=== PATIENT | female | born 1990 | race African-American/Black ===

== ENCOUNTER 2019-06-06 14:47 | Emergency (ER) | payer MEDICAID ==
[~2019-06-06] VITALS: Ht 165.1 cm; Wt 63.0 kg
[2019-06-06 14:54] VITALS: BP 102/62
== END 2019-06-06 20:20 | disposition left against medical advice (07) ==
LOC: ER 16:23
DX: O26.891 Other specified pregnancy related conditions, first trimester (principal); R53.1 Weakness; R42 Dizziness and giddiness; Z3A.09 9 weeks gestation of pregnancy; Z53.21 Procedure and treatment not carried out due to patient leaving prior to being seen by health care provider